=== PATIENT | female | born 1970 | race Caucasian/White ===

== ENCOUNTER 2023-01-03 21:09 | Emergency (ER) | payer OTHER ==
[~2023-01-03] VITALS: Ht 157.5 cm; Wt 131.5 kg
[2023-01-03] MEDS ORDERED: REVATIO10 MG/1 ML PO (21:26)
[2023-01-03] MEDS ORDERED: NIFEDIPINE20 MG PO (21:26)
[2023-01-03] MEDS ORDERED: TOPROL XL100 MG PO (21:28)
[2023-01-03] MEDS ORDERED: CRESTOR10 MG PO (21:28)
[2023-01-03] MEDS ORDERED: GLIMEPIRIDE1 MG (21:28)
== END 2023-01-03 23:53 | disposition home or self-care (01) ==
LOC: ER 21:09
DX: R51.9 Headache, unspecified (principal); R11.2 Nausea with vomiting, unspecified; Z91.013 Allergy to seafood; Z91.018 Allergy to other foods